=== PATIENT | female | born 2000 | race Two or more races ===

== ENCOUNTER 2022-11-04 19:02 | Emergency (ER) | payer SELFPAY ==
[~2022-11-04] VITALS: Ht 162.6 cm; Wt 99.8 kg
--- NOTE | 2022-11-04 19:30 | NUR ---
Pt is noted in bed alert, responsive as report is received from the off going nurse that pt came in C/O N/Vomiting with Abdominal apin and throwing up Blood Sinus AM . Pt care continue as awaits MD orders.
[2022-11-04] MEDS ORDERED: ONDANSETRON HCL/PF 4 MG/2 ML VIAL ONE (19:58)
[2022-11-04] MEDS ORDERED: HALOPERIDOL LACTATE INJ 5 MG/ML VIAL ONE (19:59)
[2022-11-04] MEDS: HALOPERIDOL LACTATE INJ 5 MG/ML VIAL IV ONE (20:04)
[2022-11-04] MEDS: ONDANSETRON HCL/PF 4 MG/2 ML VIAL IVP ONE (20:04)
[2022-11-04] MEDS: IV NS 0.9% 1,000 ML BAG IV ONE (20:04)
[2022-11-04] MEDS ORDERED: MAG HYDROX/AL HYDROX/SIMETH 30 ML UDC ONE (20:07)
[2022-11-04] MEDS ORDERED: PANTOPRAZOLE 40 MG VIAL ONE (20:07)
[2022-11-04] MEDS ORDERED: LIDOCAINE VISCOUS 2% UD 15 ML UDC ONE (20:08)
[2022-11-04 20:10] LABS: BASOPHILS % (AUTO) 0.1 % (0.0-2.0); HEMATOCRIT 40 % (33-45); LYMPHOCYTES # (AUTO) 0.7 K/uL (0.8-4.8); LYMPHOCYTES % (AUTO) 4.6 % (20.0-44.0); MEAN CORPUSCULAR HGB CONC 33 g/dl (31.0-36.0); MEAN CORPUSCULAR VOLUME 82 fL (82-100); MONOCYTES # (AUTO) 0.3 K/uL (0.1-1.30); MONOCYTES % (AUTO) 2.1 % (2.0-12.0); NEUTROPHILS # (AUTO) 13.5 K/uL (1.8-8.9); NEUTROPHILS % (AUTO) 93.2 % (43.0-81.0); PLATELET COUNT (AUTO) 177 K/uL (150-450); RED BLOOD CELL COUNT(AUTO) 4.85 MIL/uL (4.0-5.2); WHITE BLOOD COUNT (AUTO) 14.5 K/uL (4.3-11.0)
[2022-11-04] MEDS: MAG HYDROX/AL HYDROX/SIMETH 30 ML UDC PO ONE (20:12)
[2022-11-04] MEDS: PANTOPRAZOLE 40 MG VIAL IV ONE (20:12)
[2022-11-04] MEDS: LIDOCAINE VISCOUS 2% UD 15 ML UDC MM ONE (20:12)
[2022-11-04 20:30] LABS: ALBUMIN 4.2 g/dL (3.4-5.0); BILIRUBIN,DIRECT 0.1 mg/dL (0.0-0.2); BILIRUBIN,TOTAL 0.5 mg/dL (0.2-1.0); CALCIUM, SERUM 9.1 mg/dL (8.5-10.1); CREATININE 0.8 mg/dL (0.6-1.3); POTASSIUM 3.2 mmol/L (3.5-5.1); TOTAL PROTEIN, SERUM 7.7 g/dL (6.4-8.2)
[2022-11-04 20:36] LABS: BILIRUBIN,URINE NEGATIVE (NEGATIVE); COLOR,URINE YELLOW (YELLOW); LEUKOCYTE ESTERASE ,URINE NEGATIVE (NEGATIVE); NITRITE, URINE NEGATIVE (NEGATIVE); PROTEIN,URINE 1+ mg/dl (NEGATIVE); UGLUCOSE NEGATIVE (NEGATIVE); UROBILINOGEN,URINE 0.2 EU/dL (0.2)
[2022-11-04] MEDS ORDERED: IOHEXOL-300 100 ML VIAL IV ONE (20:43)
[2022-11-04] MEDS ORDERED: IV NS 0.9% 250 ML IV ONE (20:43)
[2022-11-04] MEDS: IV NS 0.9% 1,000 ML IV ONE (21:13)
--- NOTE | 2022-11-04 21:16 | NUR ---
Pt care continue as she is been monitor closely after been medicated with LAB works done as ordered. Pt care continue as awaits X-Ray results.
[2022-11-04 21:17] LABS: BACTERIA,URINE Few /HPF (None Seen); SQUAMOUS EPITHELIAL CELL,UR Moderate /HPF (None Seen); WBC,URINE NONE SEEN /HPF (0-3)
[2022-11-04] MEDS ORDERED: KETOROLAC TROMETHAMINE INJ 30 MG/ML VIAL ONE (21:36)
[2022-11-04] MEDS: KETOROLAC TROMETHAMINE INJ 30 MG/ML VIAL IV ONE (21:41)
[2022-11-04] MEDS ORDERED: ONDA4TAB11 PO (22:04)
[2022-11-04] MEDS ORDERED: KETO10TA2 PO (22:04)
[2022-11-04 22:24] VITALS: BP 132/82
--- NOTE | 2022-11-04 22:25 | NUR ---
Pt is noted off the inut as she is been discharge to home with all discharge instructions given with no s/s off distress or C/O pain and IV Access discontinue.
== END 2022-11-04 22:26 | disposition home or self-care (01) ==
LOC: ER 19:05
DX: N83.202 Unspecified ovarian cyst, left side (principal); R11.2 Nausea with vomiting, unspecified; F41.9 Anxiety disorder, unspecified
CPT/HCPCS: 99285; 74177; 96374; 96375; 71045; 96361; 85025; 80048; 83690; 80076; 84703; 81001; 36415; 85730; J1630; J1885; J2405; J7030 ×2; J7050; C9113; Q9967; A4223